=== PATIENT | female | born 1995 | race Caucasian/White ===

== ENCOUNTER 2023-02-01 18:34 | Emergency (ER) | payer MEDICAID ==
[~2023-02-01] VITALS: Ht 165.1 cm; Wt 86.3 kg
[~2023-02-01 18:34] MED LIST: FERR-63 PO; IBUP-1008 PO
[2023-02-01 18:49] VITALS: BP 134/94
== END 2023-02-01 22:30 | disposition left against medical advice (07) ==
LOC: ER 18:34
DX: R21 Rash and other nonspecific skin eruption (principal); Z53.21 Procedure and treatment not carried out due to patient leaving prior to being seen by health care provider
CPT/HCPCS: 99281